=== PATIENT | female | born 1980 | race Caucasian/White ===

== ENCOUNTER 2018-11-20 10:39 | Emergency (ER) | payer OTHER ==
[~2018-11-20] VITALS: Ht 160 cm; Wt 72.6 kg
[2018-11-20] MEDS ORDERED: NOHOMEMEDICATIONS (10:52)
[2018-11-20] MEDS ORDERED: NORCO 5-325 TA1 EACH PO (12:39)
[2018-11-20 12:48] VITALS: BP 105/55
== END 2018-11-20 12:47 | disposition home or self-care (01) ==
LOC: M.ERS 10:39
DX: S20.219A Contusion of unspecified front wall of thorax, initial encounter (principal); V49.49XA Driver injured in collision with other motor vehicles in traffic accident, initial encounter; Y93.89 Activity, other specified; Y92.89 Other specified places as the place of occurrence of the external cause; Y99.8 Other external cause status

== ENCOUNTER 2020-05-21 15:53 | Emergency (ER) | payer BC ==
[~2020-05-21] VITALS: Ht 162.6 cm; Wt 78.5 kg
[~2020-05-21 15:53] MED LIST: NOHOMEMEDICATIONS; NORCO 5-325 TA1 EACH PO
[2020-05-21] MEDS ORDERED: SPIRONOLACTONE100 M1 PO (16:11)
[2020-05-21 16:50] LABS: ABSOLUTE EOSINOPHILS 0.1 thou/uL (0.0-0.7); ABSOLUTE LYMPHOCYTES 1.7 thou/uL (0.8-5.3); ABSOLUTE MONOCYTES 0.4 thou/uL (0.0-1.2); BASOPHILS 0.5 %; EOSINOPHILS 1.1 %; HEMATOCRIT 38.8 % (37.0-47.0); HEMOGLOBIN 13.1 gm/dL (12.0-15.0); LYMPHOCYTES 27.1 %; MCH 31.2 pg (26.0-34.0); MCHC 33.8 g/dL (28.0-37.0); MCV 92.2 fL (80.0-100.0); MONOCYTES 6.7 %; MPV 8.6 fl. (7.2-11.1); NUCLEATED RBCS 0 /100WBC; PLATELET COUNT* 262 thou/uL (150-400); POLYS 64.6 %; RBC 4.21 mil/uL (4.20-5.00); WBC 6.2 thou/uL (4.0-11.0)
[2020-05-21 16:58] LABS: CALCIUM 9.6 mg/dL (8.5-10.1); CREATININE 0.9 mg/dL (0.6-1.3); POTASSIUM 3.9 mmol/L (3.5-5.1)
[2020-05-21 17:03] LABS: ALBUMIN 4.4 g/dL (3.4-5.0); TOTAL BILIRUBIN 0.6 mg/dL (<0.1-1.0); TOTAL PROTEIN 8.3 g/dL (6.4-8.2)
[2020-05-21 17:35] LABS: URINE BILIRUBIN NEGATIVE (Negative); URINE BLOOD NEGATIVE (Negative); URINE CLARITY CLEAR; URINE COLOR YELLOW; URINE GLUCOSE-RANDOM NEGATIVE (Negative); URINE KETONES NEGATIVE (Negative); URINE LEUKOCYTES-REFLEX NEGATIVE (Negative); URINE NITRITE-REFLEX NEGATIVE (Negative); URINE PROTEIN NEGATIVE (Negative); URINE UROBILINOGEN 0.2 E.U./dl (0.2-1.0)
[2020-05-21] MEDS ORDERED: IBUPROFEN 800800 M1 PO (17:50)
[2020-05-21] MEDS ORDERED: ZANAFLEX4 MG PO (17:50)
[2020-05-21] MEDS ORDERED: ONDANSETRON HCL4 M2 PO (17:59)
[2020-05-21 18:06] VITALS: BP 111/65
--- NOTE | 2020-05-22 08:27 | EKG ---
[place] [address] ELECTROCARDIOGRAM REPORT Name: MARK CASTILLOBERLY Johnson Room: [facility] [place]#: [id number] Admission: 05/21/20 Attend Phys: Discharge: 05/21/20 Date of : 82 Date of Service: 05/21/20 1617 Report #: [id number] THIS REPORT FOR: //name// [facility] ED Test Date: 2020-05-21 Test Time: 16:17:28 Pat Name: THOMAS CASTILLO Department: Room: Gender: Gripper [facility] 1980 Requested By: Hattie Tirnidad Order Number: [id number] MD: August Duron Measurements Intervals [place] Rate: 61 P: 57 NM: 140 QRS: 62 QRSD: 104 T: 47 QT: 416 QTc: 419 Interpretive Statements Sinus rhythm RSR' in V1 or V2, right VCD or RVH Baseline wander in lead(s) II No previous ECG available for comparison Electronically Signed On 05-22-2020 8:27:16 CDT by August Duron [email or web address] <ELECTRONICALLY SIGNED> By: August Duron MD, FACC 05/22/20 0827 1617 1617 August Duron MD, FACC /EPI
== END 2020-05-21 18:08 | disposition home or self-care (01) ==
LOC: M.ERS 15:53
PROVIDERS: Nurse Practitioner Family
DX: S16.1XXA Strain of muscle, fascia and tendon at neck level, initial encounter (principal); S29.012A Strain of muscle and tendon of back wall of thorax, initial encounter; S39.012A Strain of muscle, fascia and tendon of lower back, initial encounter; R07.89 Other chest pain; R10.84 Generalized abdominal pain; V89.2XXA Person injured in unspecified motor-vehicle accident, traffic, initial encounter; Y93.89 Activity, other specified; Y92.89 Other specified places as the place of occurrence of the external cause; Y99.8 Other external cause status